=== PATIENT | female | born 1940 | race Caucasian/White ===

== ENCOUNTER 2017-04-25 10:25 | Outpatient (CLI) | payer MEDICAID, OTHER | END 2017-04-25 19:03 | disposition home or self-care (01) | LOC: SMA 10:25 | PROVIDERS: ATTEND Family Medicine | DX: Z12.31 Encounter for screening mammogram for malignant neoplasm of breast (principal) | CPT/HCPCS: G0202 ==

== ENCOUNTER 2017-08-01 12:04 | Outpatient (CLI) | payer OTHER, MEDICAID ==
[~2017-08-01 12:04] MED LIST: ASA81 PO; GLU500 PO; LORA-259 PO; LOVA20TA2 PO
== END 2017-08-01 20:03 | disposition home or self-care (01) ==
LOC: SRD 12:04
PROVIDERS: ATTEND Family Medicine
DX: M81.0 Age-related osteoporosis without current pathological fracture (principal); M47.894 Other spondylosis, thoracic region; I10 Essential (primary) hypertension
CPT/HCPCS: 71046-TC

== ENCOUNTER 2018-05-02 09:52 | Outpatient (CLI) | payer OTHER, MEDICAID | END 2018-05-02 18:31 | disposition home or self-care (01) | LOC: SMA 09:52 | PROVIDERS: ATTEND Family Medicine | DX: Z12.31 Encounter for screening mammogram for malignant neoplasm of breast (principal) | CPT/HCPCS: 77067 ==

== ENCOUNTER 2018-06-25 23:20 | Emergency (ER) | payer OTHER, MEDICAID ==
[~2018-06-25] VITALS: Ht 152.4 cm; Wt 68.0 kg
[2018-06-25 23:25] VITALS: BP_SYST 153
[2018-06-26] MEDS ORDERED: NACL 0.9% 1,000 ML IV ONE (00:40)
[2018-06-26 01:05] LABS: BASOPHILS % (AUTO) 0.2 % (0.0-2.0); EOSINOPHILS # (AUTO) 0.1 K/uL (0.0-0.4); EOSINOPHILS % (AUTO) 1.3 % (0.0-4.0); HEMOGLOBIN 14.3 g/dL (12.0-16.0); LYMPHOCYTES # (AUTO) 1.2 K/uL (1.0-5.5); LYMPHOCYTES % (AUTO) 12.1 % (20.5-51.5); MEAN CORPUSCULAR HEMOGLOBIN 29 pg (27-31); MEAN CORPUSCULAR HGB CONC 33 % (32-36); MEAN CORPUSCULAR VOLUME 87 fL (79.0-98.0); MONOCYTES # (AUTO) 0.3 K/uL (0.0-1.0); MONOCYTES % (AUTO) 3.2 % (1.7-9.3); NEUTROPHILS # (AUTO) 8.2 K/uL (1.8-7.7); NEUTROPHILS % (AUTO) 83.2 % (40.0-70.0); PLATELET COUNT (AUTO) 283 K/uL (130-430); RED BLOOD CELL COUNT(AUTO) 4.93 MIL/uL (4.2-6.2); RED CELL DISTRIBUTION WIDTH 13.5 % (9.0-15.0); WHITE BLOOD COUNT (AUTO) 9.8 K/uL (4.8-10.8)
[2018-06-26 01:08] LABS: BILIRUBIN,URINE NEGATIVE (NEGATIVE); BLOOD, URINE NEGATIVE (NEGATIVE); CLARITY/URINE CLEAR (CLEAR); COLOR,URINE YELLOW (YELLOW); GLUCOSE,URINE NEGATIVE (NEGATIVE); KETONES,URINE NEGATIVE (NEGATIVE); LEUKOCYTE ESTERASE ,URINE NEGATIVE (NEGATIVE); NITRITE, URINE NEGATIVE (NEGATIVE); PH,URINE 7.5 (5.0-8.0); PROTEIN URINE NEGATIVE (NEGATIVE); UROBILINOGEN,URINE 0.2 (0.2-1.0)
[2018-06-26 01:14] LABS: ANION GAP 10 (5-15); CALCIUM 9.5 mg/dL (8.4-11.0); CHLORIDE 100 mmol/L (98-107); CREATININE 0.82 mg/dL (0.55-1.30); GLUCOSE 158 mg/dL (70-99); POTASSIUM 4.2 mmol/L (3.5-5.1); SODIUM SERUM 139 mmol/L (136-145); UREA NITROGEN, BLOOD 15 mg/dL (8-21)
[2018-06-26 01:19] LABS: PROTHROMBIN TIME 10.3 SECS (9.5-12.5)
[2018-06-26] MEDS ORDERED: LANS15CA14 PO (01:19)
[2018-06-26] MEDS ORDERED: LEVO5TAB13 PO (01:19)
[2018-06-26] MEDS ORDERED: IBUP-1969 PO (01:19)
[2018-06-26] MEDS ORDERED: FERR140T PO (01:19)
[2018-06-26] MEDS ORDERED: ASPI-1153 PO (01:19)
[2018-06-26] MEDS ORDERED: LORA10TA7 PO (01:19)
[2018-06-26] MEDS ORDERED: PRO20 PO (01:19)
[2018-06-26] MEDS ORDERED: LOSA50TA3 PO (01:19)
[2018-06-26] MEDS ORDERED: GLU500 PO (01:19)
[2018-06-26 01:20] LABS: ALANINE AMINOTRANSFERASE 13 U/L (12-78); ALBUMIN 4.2 g/dL (3.4-4.8); ASPARTATE AMINOTRANSFERASE 21 U/L (10-37); TOTAL BILIRUBIN 0.3 mg/dL (0.0-1.0)
[2018-06-26] MEDS ORDERED: METO25TA3 PO (01:21)
[2018-06-26 03:41] VITALS: BP_SYST 152
== END 2018-06-26 03:41 | disposition home or self-care (01) ==
LOC: SED 23:20
DX: J00 Acute nasopharyngitis [common cold] (principal); R51 Headache; E11.9 Type 2 diabetes mellitus without complications; I10 Essential (primary) hypertension; E78.00 Pure hypercholesterolemia, unspecified; Z88.6 Allergy status to analgesic agent; Z79.82 Long term (current) use of aspirin; Z79.899 Other long term (current) drug therapy
CPT/HCPCS: 36415; 71045; 80053; 81003; 82962; 83605; 84484; 85025; 85610; 85730; 86710; 87040; 87086; 99284; J7030

== ENCOUNTER 2019-05-11 10:46 | Outpatient (CLI) | payer OTHER, MEDICAID ==
[~2019-05-11 10:46] MED LIST changes: +ASPI-1153 PO; +FERR140T2 PO; +IBUP-1969 PO; +LANS15CA14 PO; +LEVO5TAB13 PO; +LORA10TA7 PO; +LOSA50TA3 PO; +METO25TA3 PO; +PRO20 PO
== END 2019-05-11 20:23 | disposition home or self-care (01) ==
LOC: SMA 10:46
PROVIDERS: ATTEND Family Medicine
DX: Z12.31 Encounter for screening mammogram for malignant neoplasm of breast (principal)
CPT/HCPCS: 77067

== ENCOUNTER 2019-06-30 13:31 | Emergency (ER) | payer OTHER, MEDICAID ==
[~2019-06-30] VITALS: Ht 162.6 cm; Wt 67.1 kg
--- NOTE | 2019-06-30 13:35 | NUR ---
Patient to ER bed H2 to gown for evaluation. Side rails up.
--- NOTE | 2019-06-30 13:40 | NUR ---
Pt brought by friend, A&Ox4, pt presents to ER with R arm pain x 1 week, denies trauma, skin pink and warm, cap refill <3.
[2019-06-30 13:46] VITALS: BP_SYST 164
--- NOTE | 2019-06-30 14:43 | NUR ---
Dr Hubbard at bedside examining patient
[2019-06-30] MEDS ORDERED: traMADol HCL HCL 50 MG TABLET (ULTRAM) PO ONE (15:00)
--- NOTE | 2019-06-30 15:10 | NUR ---
Note samirajelena in EDM - 06/30/19 at 1513 by [email or web address] Patient given written and verbal discharge instructions and verbalizes understanding. ER discussed with patient the results and treatment provided. Patient in stable condition. ID arm band removed. Rx of Debrox given. Patient educated on pain management and to follow up with PMD. Pain Scale 0/10. Opportunity for questions provided and answered. Medication side effect fact sheet provided.
[2019-06-30 15:54] VITALS: BP_SYST 150
--- NOTE | 2019-06-30 15:54 | NUR ---
Patient given written and verbal discharge instructions and verbalizes understanding. ER MD Dr. Hubbard discussed with patient the results and treatment provided. Patient in stable condition. ID arm band removed. Rx of Tramadol given. Patient educated on pain management and to follow up with PMD. Pain Scale 6/10. Opportunity for questions provided and answered. Medication side effect fact sheet provided.
== END 2019-06-30 15:54 | disposition home or self-care (01) ==
LOC: SED 13:31
DX: M54.12 Radiculopathy, cervical region (principal); I10 Essential (primary) hypertension; E11.9 Type 2 diabetes mellitus without complications; E78.00 Pure hypercholesterolemia, unspecified; Z88.6 Allergy status to analgesic agent; Z79.84 Long term (current) use of oral hypoglycemic drugs; Z79.82 Long term (current) use of aspirin; Z79.899 Other long term (current) drug therapy
CPT/HCPCS: 72040-TC; 93005; 99283

== ENCOUNTER 2020-06-20 10:58 | Outpatient (CLI) | payer OTHER, MEDICAID ==
[~2020-06-20 10:58] MED LIST changes: -ASPI-1153 PO; +ASPI-1393 PO
== END 2020-06-20 20:48 | disposition home or self-care (01) ==
LOC: SMA 10:58
PROVIDERS: ATTEND Family Medicine
DX: Z12.31 Encounter for screening mammogram for malignant neoplasm of breast (principal)
CPT/HCPCS: 77067

== ENCOUNTER 2020-06-30 12:09 | Outpatient (CLI) | payer OTHER, MEDICAID | END 2020-06-30 20:19 | disposition home or self-care (01) | LOC: SRD 12:09 | PROVIDERS: ATTEND Family Medicine | DX: R05 Cough (principal) | CPT/HCPCS: 71046-TC ==

== ENCOUNTER 2021-07-18 10:30 | Outpatient (CLI) | payer OTHER, MEDICAID | END 2021-07-18 19:11 | disposition home or self-care (01) | LOC: SMA 10:30 | PROVIDERS: ATTEND Family Medicine | DX: Z12.31 Encounter for screening mammogram for malignant neoplasm of breast (principal) | CPT/HCPCS: 77067 ==